=== PATIENT | male | born 1985 | race African-American/Black ===

== ENCOUNTER 2023-04-16 23:17 | Emergency (ER) | payer SELFPAY ==
[~2023-04-16] VITALS: Ht 188 cm; Wt 90.0 kg
[2023-04-16 23:27] VITALS: BP 140/76; PULSE 91; RESP 16; TEMP 97.9; O2SAT 96
[2023-04-17] MEDS ORDERED: tetanus & diphtheria toxoid (Td) vaccine 0.5ml IMVAC ONE (00:05)
[2023-04-17] MEDS ORDERED: TETanus/Pertussis (Acell)/Diphther VAC/PF (Tdap-Adult) 0.5ml syringe IMVAC ONE (00:20)
--- NOTE | 2023-04-17 01:50 | NUR ---
pt seen leaving the er by staff. md henriquez
== END 2023-04-17 01:53 | disposition left against medical advice (07) ==
LOC: ER 23:19
DX: S61.012A Laceration without foreign body of left thumb without damage to nail, initial encounter (principal); Z53.21 Procedure and treatment not carried out due to patient leaving prior to being seen by health care provider; W26.8XXA Contact with other sharp object(s), not elsewhere classified, initial encounter; Y93.89 Activity, other specified; Y92.89 Other specified places as the place of occurrence of the external cause; Y99.8 Other external cause status
CPT/HCPCS: 90715; 99281